=== PATIENT | female | born 1985 | race Caucasian/White ===

== ENCOUNTER → 2018-09-14 | Outpatient (CLI) | payer MEDICAID ==
[~2018-09-14] MED LIST: ACHD5005 PO; CYCL10TA9 PO; HYDR-3714 PO; NAPR-243 PO; SULF1TAB38 PO
--- NOTE | 2018-09-14 18:00 | Diagnostic Imaging Report ---
INDICATION: Right knee pain x2 weeks. FINDINGS: Three views of right knee show no fracture, dislocation or other acute abnormalities. IMPRESSION: Negative right knee. Dictated by: Dictated on workstation # [id number]
== END ==
LOC: RAD FS 15:37
PROVIDERS: ATTEND Nurse Practitioner Family
DX: M25.561 Pain in right knee (principal)
CPT/HCPCS: 73562

== ENCOUNTER 2019-08-08 14:01 | Emergency (ER) | payer MEDICAID ==
[~2019-08-08] VITALS: Ht 165.1 cm; Wt 104.5 kg
--- NOTE | 2019-08-08 14:05 | NUR ---
RN's and physician to registration window listening to patient chief c/o of 38 week labor pain; G-5, P-4. Pt has been having contractions every 10 min since 0600. Pt did not realize we can not do monitoring for contractions. Pt is checking in and agreed she just realizes a medical screening, FHT, and cervix check for rapid determination of patient disposition for appropriate care.
--- OUTSIDE RECORDS SUMMARY | 2019-08-08 14:06 | XMS REPORT ---
Author Author Kayla Sifuentes Doctor Organization [facility] Address Unknown Phone Unavailable Care Team Providers Care Photonics Technician Name Role Phone Migration, Doctor Unavailable Unavailable PROBLEMS Type Condition ICD9-CM Code EQK86-FN Code Onset Dates Condition S tatus SNOMED Code Problem Tobacco use Z72.0 Mar, Active 69032 3000 Problem Low grade squamous intraepit helial lesion on cytologic smear of cervix (LGSIL) R87.612 Apr, Active 298462135 Problem Mild intermittent asthma with acute exacerbation J 45.21 Active 302911986 Problem Amenorrhea N91.2 Active 04440244 Problem Routine follow-up Z39.2 Aug, 201 7 Active 675154448 Problem Methamphetamine abuse F15.10 Mar, Activ e 612767149 Problem Abnormal uterine contraction O62.9 May, 201 6 Active 57066183 Problem care, subsequent , second trimester Z34.82 Active 681156925 ALLERGIES No Information ENCOUNTERS Encounter Location Date Diagnosis [place] [address] [address] Apr, [place] [address] [address] [address] Mar, Irritant contact dermatitis due to other chemical products L24.5 [place] [address] [address] [address] Mar, Supervision of other normal Z34.80 [place] [address] [address] [place] [address] Jan, [place] [address] [address] [address] Jan, Supervision of other normal Z34.80 and Substance abuse affecting in first trimester, antepartum O99.321 [place] [address] [address] [address] Jan, [facility] [address] [place] [address] Jan, [address] [place] [address] Jan, [address] [place] [address] Jan, Supervision of other normal Z34.80 [facility] [address] [place] [address] Jan, Strep pharyngitis J02.0 and Sore throat J02.[address] [place] [address] Jan, Amenorrhea N91.2 [place] [address] [address] [place] [address] Jan, Amenorrhea N91.[address] [place] [address] Nov, Sore throat J02.9 ; Mild int ermittent asthma with acute exacerbation J45.21 and Strep pharyngitis J02.0 [facility] [address] [place] [address] Oct, Encounter for Depo-Provera c ontraception Z30.42 [facility] [address] [place] [address] Aug, [facility] [address] [facility] [place] [address] Aug, [address] [place] [address] Aug, Acute pain of right knee M25 .561 [facility] [address] [place] [address] July, Bronchitis J40 and Furuncle of left axilla L02.[address] [place] [address] 09 Jul, 2018 Encounter for Depo-Provera c ontraception Z30.42 [facility] [address] [place] [address] 12 Apr, 2018 Encounter for Depo-Provera c ontraception Z30.42 ; Contraception management Z30.9 and Contraceptive education Z30.09 [facility] [place] [address] [place] [address] 06 Apr, 2018 [facility] [address] [facility] [place] [address] Mar, [place] [address] [place] [id number] [place] [address] Jan, [place] [address] [place] [address] [id number] [place] [address] Jun, Encounter for Depo-Provera contraception Z30.42 [place] [address] [facility] [place] [address] Apr, [place] [address] [place] [address] [id number] [place] [address] Mar, Routine gynecological examination Z01.41 9 ; Routine screening for STI (sexually transmitted infection) Z11.3 and Encounter for Depo-Provera contraception Z30.42 [facility] [address] [facility] [id number] [place] [address] Jan, Acute nasopharyngitis J00 [facility] [address] [facility] [place] [address] July, [facility] [address] [place] [id number] [place] [address] Jan, care, subsequent , sec ond trimester Z34.82 [facility] [address] [facility] [place] [address] Jan, care, subsequent , sec ond trimester Z34.82 ; Diabetes mellitus screening Z13.1 ; Screening, iron deficiency anemia Z13.0 and 27 weeks gestation of Z3A.27 [facility] [id number] [place] [address] Jan, [place] [address] [facility] [place] [address] Jan, [place] [address] [place] [id number] [place] [address] Jan, with 24 completed weeks gestat ion Z3A.24 ; Encounter for immunization Z23 and Normal in second trimester Z34.92 [place] [address] [place] [address] [id number] [place] [address] July, [place] [address] [place] [id number] [place] [address] July, [place] [address] [place] [address] [id number] [place] [address] Aug, IMMUNIZATIONS No Known Immunizations SOCIAL HISTORY Never Assessed REASON FOR VISIT PLAN OF CARE VITAL SIGNS MEDICATIONS Unknown Medications RESULTS No Results PROCEDURES No Known procedures INSTRUCTIONS MEDICATIONS ADMINISTERED No Known Medications MEDICAL (GENERAL) HISTORY Type Description Date Medical History asthma Hospitalization History childbirth x4 Hospitalization History Bronchitis as a child ?
--- OUTSIDE RECORDS SUMMARY | 2019-08-08 14:07 | XMS REPORT | Continuity of Care Document ---
Author Author [facility] Organization [facility] Address Unknown Phone Unavailable Care Team Providers Care Manager Primary Name Role Phone АННА PATEL MD PP Insurance Providers Payer Name Policy Number Subscriber Name Relationship [facility] [id number] Kayla Salguero 01 Self / Same As Patient Advance Directives Directive Response Recor ded Date Advance Directives N 10:27pm Problems No Known Problems or Medical conditions. Family History History Response Recorde d Date/Time Hx Family Cancer Y mom cervical 04/14/10 12:45pm Social History History Response Recorde d Date/Time Alcohol Use Rarely Uses 07/21/12 10:27pm Recreational Drug Use N 07/21/12 10:27pm Recent Foreign Travel N 07/21/12 10:27pm Recent Infectious Disease Exposure N 07/21/12 10:27pm Hospitalization with Isolation Denies 07/21/12 10:27pm Allergies, Adverse Reactions, Alerts Allergen Type Severity Reaction Last Updated No Known Drug Allergies Allergy Unknown 01/17/09 Medications Medication Dose Units Route Sig Qty Days Trimethoprim/Sulfamethoxazole (Bactrim Ds) 1 Ea PO BID 10 Naproxen (Naprosyn) 1 Ea ch PO BID PRN 20 Hydrocodone Bit/Acetaminophen (Hydrocodo n-Acetaminophen 5-325) 1 - 2 Each PO Q6H PRN 20 Cyclobenzaprine HCl (Cyclobenzaprine Hcl) 1 Each PO Q8HR PRN 20 Response Recorded Date/Time Status not known Unknown Results No Known Relevant Diagnostic Tests, Laboratory Data and/or Discharge Summary. Procedures Procedure Code Date VACUUM EXT DEL W EPISIOT 72.71 01/18/09 MANUAL ASSIST DELIV NEC 73.59 04/14/10 Encounters Encounter Location Date/ Time Departed Emergency Room [facility] 07/21/12 10:24pm Discharged Inpatient [facility] 04/14/10 12:17pm
--- OUTSIDE RECORDS SUMMARY | 2019-08-08 14:07 | XMS REPORT ---
Author Kayla Lantigua [facility]ClinicalWorks Address Unknown Phone Unavailable Care Team Providers Care Legislative Correspondent Name Role Phone RADHA COPE CP Unavailable Allergies No Known Allergies Problems Problem Type Condition Code Onset Dates Condition Statu s Assessment care, subsequent , second trimester Z34.82 Active Assessment Diabetes mellitus screening Z13.1 Active Problem care, subsequent , second trimester Z34.82 Active Assessment Screening, iron deficiency anemia Z13.0 Active Assessment 27 weeks gestation of Z3A.27 Active Medications No Known Medications Procedures Procedure Coding System Code Date Office Visit, Est Pt., Level 2 CPT-4 27327 D 2014 URINE-NO MICRO CPT-4 15933 Feb 21, 2015 Vital Signs Date/Time: Feb 21, 2015 Temperature 97.0 F Weight 223.0 lbs Height 63.6 in BMI 38.761 Index Blood Pressure Diastolic 78 mmHg Blood Pressure Systolic 118 mmHg Cardiac Monitoring Heart Rate 78 bpm Results Name Result Date Reference Range Unit Abnormali ty Flag UA OB DIP (IN HOUSE) ----Glucose negative 20150221 ----Protein negative [id number] Summary Purpose eClinicalWorks Submission
--- OUTSIDE RECORDS SUMMARY | 2019-08-08 14:07 | XMS REPORT ---
Author Kayla Lantigua [facility] eClinicalWorks Address Unknown Phone Unavailable Care Team Providers Care Interactive Marketing Strategist Name Role Phone RADHA COPE CP Unavailable Allergies No Known Allergies Problems Problem Type Condition Code Onset Dates Condition Statu s Assessment care, subsequent , second trimester Z34.82 Active Problem care, subsequent , second trimester Z34.82 Active Medications No Known Medications Procedures Procedure Coding System Code Date COMPLETE CBC W/AUTO DIFF WBC CPT-4 86624 Feb 22, 2015 VENIPUNCT, ROUTINE* CPT-4 90831 Feb 22, 2015 GLUCOSE TEST CPT-4 88183 Feb 22, 2015 Results Name Result Date Reference Range Unit Abnormali ty Flag ROUTINE VENIPUNCTURE Summary Purpose eClinicalWorks Submission
--- OUTSIDE RECORDS SUMMARY | 2019-08-08 14:07 | XMS REPORT ---
Author Kayla Sims Organization [employer] Address Unknown Phone Unavailable Care Team Providers Care Irrigation District Manager Name Role Phone JESSI ALVA CP Unavailable Allergies, Adverse Reactions, Alerts Substance Reaction Event Type N.K.D.A. Info Not Available Non Drug Allergy Problems Problem Type Condition Code Onset Dates Condition Statu s Assessment Encounter for immunization Z23 A ctive Assessment Normal in second trimester Z34.92 Active Assessment with 24 completed weeks gestation Z3A.24 Active Medications Medication Code System Code Instructions Start Date End Date Status Dosage PrePLUS [facility] [address]-85 27-1 MG Orally no t defined Procedures Procedure Coding System Code Date URINALYSIS, AUTO, W/O SCOPE CPT-4 91860 Jan 31, 2015 URINE CULTURE/COLONY COUNT CPT-4 81290 Jan Office Visit, Est Pt., Level 3 CPT-4 26912 D 2014 FLUZONE QUAD (3 & UP)-SINGLE DOSE VIAL-SANOFI PASTEUR-2014 CPT-4 35631 Jan 31, 2015 URINE TEST CPT-4 71649 Jan 31, 201 5 SINGLE IMMUNIZATION ADMIN CPT-4 80825 Jan Vital Signs Date/Time: Jan 31, 2015 Temperature 98.8 F Weight 219.7 lbs Height 63.6 in BMI 38.187 Index Blood Pressure Diastolic 64 mmHg Blood Pressure Systolic 116 mmHg Cardiac Monitoring Heart Rate 76 bpm Results No Known Results Immunizations Vaccine Administration Date FLUZONE QUAD (3 & UP)-SINGLE DOSE VIAL-SANOFI PASTEUR- 2014Jan 31, 2015 Summary Purpose eClinicalWorks Submission
--- OUTSIDE RECORDS SUMMARY | 2019-08-08 14:07 | XMS REPORT ---
Author Author Kayla COPE Organization [facility] Address [address] [place] [address] Care Team Providers Care Sign Poster Name Role Phone RADHA COPE Unavailable PROBLEMS Type Condition ICD9-CM Code PON08-AM Code Onset Dates Condition S tatus SNOMED Code Problem care, subsequent , second trimester Z34.82 Active 795495672 ALLERGIES No Information ENCOUNTERS Encounter Location Date Diagnosis [place] [id number] [place] [address] Jun, Encounter for Depo-Provera c ontraception Z30.42 [place] [id number] [place] [address] 09 Apr, 2017 [facility] [address] [place], [place] [address] [address] [place] [address] Mar, Routine gynecological examin ation Z01.419 ; Routine screening for STI (sexually transmitted infection) Z11.3 and Encounter for Depo-Provera contraception Z30.42 [facility] [address] [place] [address] Jan, Acute nasopharyngitis J00 [facility] [address] [place] [id number] [place] [address] Jan, care, subsequent pr egnancy, second trimester Z34.82 [place] [id number] [place] [address] Jan, care, subsequent pr egnancy, second trimester Z34.82 ; Diabetes mellitus screening Z13.1 ; Screening, iron deficiency anemia Z13.0 and 27 weeks gestation of Z3A.27 [facility] [id number] [place] [address] Jan, [facility] [address] [facility] [id number] [address] [place] [address] Jan, [facility] [address] [facility] [facility] [id number] [address] [place] [address] Jan, with 24 completed weeks gestation Z3A.24 ; Encounter for immunization Z23 and Normal in second trimester Z34.92 [place] [address] [facility] [facility] [id number] [address] [place] [address] July, [facility] [address] [facility] [id number] [address] [place] [address] July, [place] [address] [facility] [facility] [id number] [address] [place] [address] Aug, IMMUNIZATIONS Vaccine Route Administration Date Status DEPO PROVERA (150 MG/ML) IM Intramuscular June 20, 2017 Admini stered SOCIAL HISTORY Never Assessed REASON FOR VISIT Depo Provera injection-NIKKI Ellis PLAN OF CARE VITAL SIGNS MEDICATIONS Unknown Medications RESULTS Name Result Date Reference Range TEST, URINE (IN HOUSE) 2017-06-20 RESULTS neg Lot # [id number] Control + Exp date 08/2018 PROCEDURES Procedure Date Ordered Result Body Site URINE TEST June 20, 2017 DEPO PROVERA (150 MG/ML) June 20, 2017 THER/PROPH/DIAG INJ, SC/IM June 20, 2017 INSTRUCTIONS MEDICATIONS ADMINISTERED No Known Medications MEDICAL (GENERAL) HISTORY Type Description Date Hospitalization History childbirth Hospitalization History Bronchitis as a child
--- OUTSIDE RECORDS SUMMARY | 2019-08-08 14:07 | XMS REPORT ---
Author Author Kayla ROSEN [facility] Address [address] [place] [address] Care Team Providers Care Adviser Sales Name Role Phone MELONIE ROSEN Unavailable PROBLEMS Type Condition ICD9-CM Code VCX33-IV Code Onset Dates Condition S tatus SNOMED Code Problem care, subsequent , second trimester Z34.82 Active 952348925 ALLERGIES No Known Allergies ENCOUNTERS Encounter Location Date Diagnosis [place] [address] [place] [address] Jun, Encounter for Depo-Provera c ontraception Z30.42 [place] [address] [place] [id number] [place] [address] 09 Apr, 2017 [place] [address] [place] [id number] [place] [address] Mar, Routine gynecological examin ation Z01.419 ; Routine screening for STI (sexually transmitted infection) Z11.3 and Encounter for Depo-Provera contraception Z30.42 [facility] [address] [facility] [id number] [address] [place] [address] Jan, Acute nasopharyngitis J00 [facility] [address] [place] [id number] [place] [address] Jan, care, subsequent pr egnancy, second trimester Z34.82 [place] [address] [place] [id number] [place] [address] Jan, care, subsequent pr egnancy, second trimester Z34.82 ; Diabetes mellitus screening Z13.1 ; Screening, iron deficiency anemia Z13.0 and 27 weeks gestation [facility] Z3A.27 [facility] [id number] [place] [address] Jan, [facility] [address] [facility] [id number] [address] [place] [address] Jan, [facility] [address] [facility] [id number] [address] [place] [address] Jan, with 24 completed weeks gestation Z3A.24 ; Encounter for immunization Z23 and Normal in second trimester Z34.92 [facility] [address] [facility] [id number] [address] [place] [address] July, [facility] [address] [facility] [id number] [address] [place] [address] July, [facility] [address] [facility] [id number] [address] [place] [address] Aug, IMMUNIZATIONS No Known Immunizations SOCIAL HISTORY Never Assessed REASON FOR VISIT congestion Pt states congestion and headache started this morning. AFSHAN Corey PLAN OF CARE Activity Details Follow Up prn Reason: VITAL SIGNS Height 63.6 in 2017-02-26 Weight 215 lbs 2017-02-26 Temperature 98.2 degrees Fahrenheit 2017-02-26 Heart Rate 80 bpm 2017-02-26 Respiratory Rate 18 2017-02-26 BMI 37.37 kg/m2 2017-02-26 Blood pressure systolic 124 mmHg 2017-02-26 Blood pressure diastolic 76 mmHg 2017-02-26 MEDICATIONS Medication Instructions Dosage Frequency Start Date End Date Duration S tatus PrePLUS 27-1 MG Not-Taki ng RESULTS Name Result Date Reference Range INFLUENZA A & B (IN HOUSE) 2017-02-26 INFLUENZA A neg INFLUENZA B neg Control + Lot # [id number] Exp date 05/31/2019 PROCEDURES Procedure Date Ordered Result Body Site INFLUENZA ASSAY W/OPTIC Feb 26, 2017 INSTRUCTIONS MEDICATIONS ADMINISTERED No Known Medications MEDICAL (GENERAL) HISTORY Type Description Date Hospitalization History childbirth Hospitalization History Bronchitis as a child
--- OUTSIDE RECORDS SUMMARY | 2019-08-08 14:07 | XMS REPORT ---
Author Kayla Sims [facility] eClinicalWorks Address Unknown Phone Unavailable Care Team Providers Care Cake Tester Name Role Phone JESSI ALVA CP Unavailable Allergies No Known Allergies Problems Problem Type Condition Code Onset Dates Condition Statu s Problem care, subsequent , second trimester Z34.82 Active Medications No Known Medications Results No Known Results Summary Purpose eClinicalWorks Submission
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
--- OUTSIDE RECORDS SUMMARY | 2019-08-08 14:07 | XMS REPORT ---
Author Author Kayla LEONARD [facility] Address [address] [place] [address] Care Team Providers Care Metallurgical Or Materials Technician Name Role Phone DARRYN LEONARD Unavailable PROBLEMS Type Condition ICD9-CM Code IVC35-WH Code Onset Dates Condition S tatus SNOMED Code Problem care, subsequent , second trimester Z34.82 Active [id number] ALLERGIES No Information ENCOUNTERS Encounter Location Date Diagnosis [place] [id number] [place] [phone] Jun, Encounter for Depo-Provera c ontraception Z30.42 [place] [address] [place] [id number] [place] [phone] 09 Apr, 2017 [place] [address] [place] [id number] [place] [phone] Mar, Routine gynecological examin ation Z01.419 ; Routine screening for STI (sexually transmitted infection) Z11.3 and Encounter for Depo-Provera contraception Z30.42 [facility] [address] [place] [id number] [place] [phone] Jan, Acute nasopharyngitis J00 [facility] [address] [place] [phone] Jan, care, subsequent pr egnancy, second trimester Z34.82 [place] [address] [place] [id number] [place] [phone] Jan, care, subsequent pr egnancy, second trimester Z34.82 ; Diabetes mellitus screening Z13.1 ; Screening, iron deficiency anemia Z13.0 and 27 weeks gestation of Z3A.27 [id number] [place] [phone] Jan, [facility] [address] [facility] [id number] [address] [place] [phone] Jan, [facility] [address] [facility] [id number] [address] [place] [phone] Jan, with 24 completed weeks gestation Z3A.24 ; Encounter for immunization Z23 and Normal in second trimester Z34.92 [place] [address] [address] [facility] [id number] [address] [place] [phone] July, [facility] [address] [facility] [id number] [address] [place] [phone] July, [place] [address] [facility] [id number] [address] [place] [phone] Aug, IMMUNIZATIONS No Known Immunizations SOCIAL HISTORY Never Assessed REASON FOR VISIT Senior Mortgage Loan Processor Hx Updated PLAN OF CARE VITAL SIGNS MEDICATIONS Unknown Medications RESULTS No Results PROCEDURES No Known procedures INSTRUCTIONS MEDICATIONS ADMINISTERED No Known Medications MEDICAL (GENERAL) HISTORY Type Description Date Hospitalization History childbirth Hospitalization History Bronchitis as a child
--- OUTSIDE RECORDS SUMMARY | 2019-08-08 14:07 | XMS REPORT ---
Author Kayla Brasher Organization [employer] Address Unknown Phone Unavailable Care Team Providers Care End Worker Name Role Phone TERI GATICA CP Unavailable Allergies No Known Allergies Problems No Known Problems Medications No Known Medications Results No Known Results Summary Purpose [employer] Submission
--- NOTE | 2019-08-08 14:16 | ED General ---
General Stated Complaint: 38 WKS PREG HAVING CONTRACTIONS Source of Information: Patient, Old Records, RN/MD History of Present Illness Date Seen by Provider: Aug 08, 2019 Time Seen by Provider: 14:00 Initial Comments This patient is a 33-year-old female that is a for at 38 weeks . Patient states she started having some contractions this morning at 8-9 minutes apart. Patient states she had a bloody show and lost her mucous plug 4 days ago. Patient is wanting to make sure that she was not having a baby right now. We did discuss only with patient about options. Patient understands that we do not have a toco monitor we could do a physical exam and evaluate her further as needed. Patient is agreeable. Patient states she just wants to be checked and then states that she will drive to [facility] or her SCALPER OPERATOR Dr. Michelle is at. Patient denies any significant cramping of any focus. Timing/Duration: 4-6 Hours Severity: Mild Allergies and Home Medications Allergies Coded Allergies: No Known Drug Allergies (Verified , 01/17/09) Home Medications Hydrocodone Bit/Acetaminophen 1 Each Tablet, 1-2 EACH PO Q6HR PRN PRN for PAIN Prescribed by: CAN MROAES on 07/21/13 6252 Patient Home Medication List Home Medication List Reviewed: Yes Review of Systems Review of Systems Constitutional: No no symptoms reported; see HPI; No chills, No diaphoresis, No dizziness, No fever, No malaise, No weakness, No weight gain, No weight loss, No other EENTM: No see HPI, No no symptoms reported, No ear discharge, No hearing loss, No ear pain, No blurred vision, No double vision, No eye pain, No tearing, No vision loss, No dental problems, No hoarseness, No mouth pain, No mouth swelling, No epistaxis, No nose congestion, No nose pain, No throat pain, No throat swelling, No other Respiratory: No no symptoms reported, No see HPI, No cough, No dyspnea on exertion, No hemoptysis, No orthopnea, No phlegm, No short of breath, No stridor, No wheezing, No other Cardiovascular: No no symptoms reported, No see HPI, No chest pain, No edema, No Hx of Intervention, No palpitations, No syncope, No vascular heart diseas, No other Genitourinary: see HPI : Yes Musculoskeletal: No no symptoms reported, No see HPI, No back pain, No gout, No joint pain, No joint swelling, No muscle pain, No muscle stiffness, No muscle cramps, No muscle twitching, No muscle weakness, No neck pain, No other Skin: No no symptoms reported, No see HPI, No change in color, No change in hair/nails, No dryness, No hx of skin cancer, No lesions, No lumps, No pruritus, No rash, No other All Other Systems Reviewed Negative Unless Noted: Yes Past Edovbvz-Rpagyp-Wrzays Hx Immunizations Up To Date Tetanus Booster (TDap): Unknown Seasonal Allergies Seasonal Allergies: Yes Past Medical History Reproductive Disorders: No Loss of Vision: Denies Hearing Impairment: Denies Family Medical History No Pertinent Family Hx Physical Exam Vital Signs Capillary Refill : Height, Weight, BMI Height: 5'3" Weight: 200lbs. oz. [id number]; BMI Method:Stated General Appearance: No Apparent Distress, WD/WN HEENT: PERRL/EOMI, TMs Normal, Normal ENT Inspection, Pharynx Normal Neck: Full Range of Motion, Normal Inspection, Non Tender, Supple Respiratory: Chest Non Tender, Lungs Clear, Normal Breath Sounds, No Accessory Muscle Use, No Respiratory Distress Cardiovascular: Regular Rate, Rhythm, No Edema, No Gallop, No JVD, No Murmur, Normal Peripheral Pulses Gastrointestinal: Normal Bowel Sounds, No Organomegaly, No Pulsatile Mass, Non Tender, Soft Genital/Rectal: Normal Genital Exam, Normal Vaginal Exam, Other (patient's cervix is high fingertip. 20% face. No discharge no bloody show.) Skin: Normal Color, Warm/Dry Progress/Results/Core Measures Suspected Sepsis SIRS Temperature: Pulse: Respiratory Rate: Blood Pressure / Mean: Results/Orders Vital Signs/I&O Capillary Refill : Progress Note : Time: 14:13 Progress Note Patient is 1 cm to fingertip. 20% effaced cervix. Patient is high cervix. -3. Patient's contractions are irregular around 8-10 minutes apart. heart tones are 136. Patient was offered full medical screening exam to our capability at this facility patient declines. Patient is agreeable to travel on to [facility] for SCALPER OPERATOR evaluation to rule out labor. Nursing staff has called the SCALPER OPERATOR floor at [facility] to give report. They are to expect the patient upon arrival. Patient be transferred by private vehicle. Departure Impression Primary Impression: with 38 completed weeks gestation Additional Impression: Irregular contractions Disposition: 01 HOME, SELF-CARE Condition: Stable Departure-Patient Inst. Decision time for Depature: 14:15 Referrals: JIMMY SMITH DO (PCP) Primary Care Physician LISA PARK APRN (Family) Primary Care Physician Patient Instructions: Labor and Delivery (Childbirth), Smoking in Add. Discharge Instructions: Patient is to drive directly to [facility] For evaluation by SCALPER OPERATOR to rule out labor. Patient does not appear to be in active labor at this time. DANIEL JULES MD Aug 08, 2019 14:16
[2019-08-08 14:20] VITALS: BP 120/65
--- NOTE | 2019-08-08 14:20 | NUR ---
Pt discharged from ER after medical screening exam and cervix check per Dr Lowe reported as "1cm" and "high". FHT 137. Pt discharged to go directly to [facility] to Labor and Delivery. A report was called to RN at [place]. Pt has family et transportation available in parking lot.
== END 2019-08-08 14:20 | disposition home or self-care (01) ==
LOC: EDUNIT# 14:01 → ER FS 14:03
DX: O62.9 Abnormality of forces of labor, unspecified (principal); Z3A.38 38 weeks gestation of pregnancy

== ENCOUNTER 2021-07-23 19:23 | Emergency (ER) | payer MEDICAID ==
[~2021-07-23] VITALS: Ht 165.1 cm; Wt 114.7 kg
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
[2021-07-23 19:44] LABS: BASOPHILS # (AUTO) 0.1 10^3/uL (0.0-0.1); BASOPHILS % (AUTO) 1 % (0-10); EOSINOPHILS # (AUTO) 0.2 10^3/uL (0.0-0.3); EOSINOPHILS % (AUTO) 2 % (0-10); HEMATOCRIT 41 % (35-52); HEMOGLOBIN 13.7 g/dL (11.5-16.0); LYMPHOCYTES # (AUTO) 3.1 10^3/uL (1.0-4.0); LYMPHOCYTES % (AUTO) 31 % (12-44); MEAN CORPUSCULAR HEMOGLOBIN 30 pg (25-34); MEAN CORPUSCULAR HGB CONC 33 g/dL (32-36); MEAN CORPUSCULAR VOLUME 90 fL (80-99); MEAN PLATELET VOLUME 9.2 fL (9.0-12.2); MONOCYTES # (AUTO) 0.7 10^3/uL (0.0-1.0); MONOCYTES % (AUTO) 8 % (0-12); NEUTROPHILS # (AUTO) 5.8 10^3/uL (1.8-7.8); NEUTROPHILS % (AUTO) 59 % (42-75); PLATELET COUNT 303 10^3/uL (130-400); WHITE BLOOD COUNT 9.9 10^3/uL (4.3-11.0)
[2021-07-23 19:51] LABS: BILIRUBIN,URINE NEGATIVE (NEGATIVE); CLARITY,URINE SL CLOUDY; COLOR,URINE YELLOW; GLUCOSE, URINE (UA) NEGATIVE (NEGATIVE); KETONES,URINE NEGATIVE (NEGATIVE); LEUKOCYTE ESTERASE ,URINE 1+ (NEGATIVE); NITRITE,URINE NEGATIVE (NEGATIVE); PROTEIN,URINE NEGATIVE (NEGATIVE)
[2021-07-23 20:00] LABS: BACTERIA,URINE MODERATE /HPF; YEAST,URINE FEW /HPF
[2021-07-23 20:02] LABS: AMPHETAMINE SCREEN, URINE NEGATIVE (NEGATIVE); BARBITURATE SCREEN URINE NEGATIVE (NEGATIVE); BENZODIAZEPINES SCREEN URINE NEGATIVE (NEGATIVE); CANNABINOID SCREEN, URINE POSITIVE (NEGATIVE); COCAINE SCREEN URINE NEGATIVE (NEGATIVE); METHADONE STAT NEGATIVE (NEGATIVE); OPIATE SCREEN URINE NEGATIVE (NEGATIVE); OXYCODONE STAT NEGATIVE (NEGATIVE); PROPOXYPHENE STAT NEGATIVE (NEGATIVE); TRICYCLIC ANTIDEPRESSANTS SCRE NEGATIVE (NEGATIVE)
[2021-07-23 20:05] LABS: ALANINE AMINOTRANSFERASE 14 U/L (0-55); ALBUMIN 4.4 GM/DL (3.2-4.5); ALKALINE PHOSPHATASE 87 U/L (40-136); BILIRUBIN,TOTAL 0.2 MG/DL (0.1-1.0); BUN/CREATININE RATIO 22; CALCIUM 9.4 MG/DL (8.5-10.1); CARBON DIOXIDE 22 MMOL/L (21-32); CHLORIDE 104 MMOL/L (98-107); CREATININE SERUM 0.79 MG/DL (0.60-1.30); GFR ESTIMATED 101; GLUCOSE 115 MG/DL (70-105); POTASSIUM 3.7 MMOL/L (3.6-5.0); SALICYLATE < 0.3 MG/DL (5.0-20.0); SODIUM 138 MMOL/L (135-145); TOTAL PROTEIN 7.5 GM/DL (6.4-8.2)
[2021-07-23 20:06] LABS: ACETAMINOPHEN < 10 UG/ML (10-30)
[2021-07-24 16:45] VITALS: BP 130/83
== END 2021-07-24 08:27 ==
LOC: EDUNIT# 19:23 → ER FS 19:25
DX: F63.81 Intermittent explosive disorder (principal); R45.851 Suicidal ideations; F17.210 Nicotine dependence, cigarettes, uncomplicated; Z20.822 Contact with and (suspected) exposure to COVID-19
CPT/HCPCS: 36415; 80053; 80306; 80320; 80329; 81000; 84703; 85025; 87088; 87636